=== PATIENT | male | born 1965 | race Native Hawaiian/Other Pacific Islander ===

== ENCOUNTER 2017-09-05 08:38 | Outpatient (CLI) | payer BC ==
[~2017-09-05 08:38] MED LIST: GLUCOPHAGE1000 MG PO; GLYBURIDE2.5 MG PO; LISI20TA11 PO
== END 2017-09-05 21:17 | disposition home or self-care (01) ==
LOC: RAD 08:38
DX: R53.83 Other fatigue (principal)

== ENCOUNTER 2020-07-18 08:35 | Outpatient (CLI) | payer OTHER | END 2020-07-18 21:45 | disposition home or self-care (01) | LOC: NM 08:35 | PROVIDERS: ATTEND Internal Medicine | DX: M89.9 Disorder of bone, unspecified (principal); G58.0 Intercostal neuropathy; M54.9 Dorsalgia, unspecified; R93.89 Abnormal findings on diagnostic imaging of other specified body structures | CPT/HCPCS: A9561 ==

== ENCOUNTER 2020-08-29 08:04 | Day surgery (SDC) | payer OTHER | END 2020-08-29 10:27 | disposition home or self-care (01) | LOC: OR 08:04 | PROVIDERS: ATTEND Internal Medicine | PROC: 3E0R33Z Introduction of Anti-inflammatory into Spinal Canal, Percutaneous Approach (ICD-10-PCS; principal; 2020-08-29) | DX: G62.9 Polyneuropathy, unspecified (principal); E11.40 Type 2 diabetes mellitus with diabetic neuropathy, unspecified; G58.0 Intercostal neuropathy; M54.9 Dorsalgia, unspecified; R93.89 Abnormal findings on diagnostic imaging of other specified body structures; Z20.822 Contact with and (suspected) exposure to COVID-19 | CPT/HCPCS: 87635; J3301; J3490; Q9966; U0003 ==

== ENCOUNTER 2020-09-14 14:11 | Emergency (ER) | payer OTHER ==
[~2020-09-14] VITALS: Ht 175.3 cm; Wt 81.6 kg
[2020-09-14 16:20] VITALS: BP 129/68; TEMP 97.9
== END 2020-09-14 16:21 | disposition home or self-care (01) ==
LOC: ED 14:11
DX: S62.524B Nondisplaced fracture of distal phalanx of right thumb, initial encounter for open fracture (principal); S68.521A Partial traumatic transphalangeal amputation of right thumb, initial encounter; W29.8XXA Contact with other powered hand tools and household machinery, initial encounter; Y92.89 Other specified places as the place of occurrence of the external cause
CPT/HCPCS: 36415; 90471; 90715; 96360; 96365; 96368; 96374; 96375; 99284; J0690; J2270; J2405